=== PATIENT | female | born 1990 | race Caucasian/White ===

== ENCOUNTER 2017-06-11 18:14 | Emergency (ER) | payer OTHER ==
[~2017-06-11] VITALS: Ht 170.2 cm; Wt 56.7 kg
[2017-06-11 18:18] VITALS: BP_SYST 121; BP_SYST 129; BP_DIAS 78; BP_DIAS 88
[2017-06-11] MEDS ORDERED: IBUPROFEN 400 MG TAB PO ONE (18:50)
[2017-06-11 20:05] VITALS: BP 120/75
== END 2017-06-11 20:05 | disposition home or self-care (01) ==
LOC: MED 18:14
DX: S16.1XXA Strain of muscle, fascia and tendon at neck level, initial encounter (principal); S20.219A Contusion of unspecified front wall of thorax, initial encounter; R03.0 Elevated blood-pressure reading, without diagnosis of hypertension; V49.49XA Driver injured in collision with other motor vehicles in traffic accident, initial encounter; Y93.89 Activity, other specified; Y92.488 Other paved roadways as the place of occurrence of the external cause; Y99.8 Other external cause status
CPT/HCPCS: 71010; 72040; 81002; 81025; 99284